=== PATIENT | female | born 1945 | race Caucasian/White ===

== ENCOUNTER 2018-07-29 10:22 | Day surgery (SDC) | payer MEDICARE, MEDICAID ==
[2018-07-20 11:46] VITALS: BMI 28.3
[2018-07-29] MEDS ORDERED: Lactated Ringer's 1,000 ML IV ONE ×2 (11:45→18:10)
[2018-07-29] MEDS ORDERED: Lidocaine 1% 5ml Abboject ONE (12:58)
[2018-07-29] MEDS ORDERED: ceFAZolin IV 2 gm in Dextrose 2 GM/50 ML BAG IVPB ONE (14:49)
[2018-07-29] MEDS ORDERED: Bupivacaine HCl 0.5% PF (30 ml) Inj ONE (14:49)
[2018-07-29] MEDS ORDERED: Lidocaine 1% w Epi 1:100,000 Inj ONE (14:50)
[2018-07-29] MEDS ORDERED: Methylene Blue 10 mg/mL(10ml) IV ONE (14:58)
[2018-07-29] MEDS ORDERED: HYDROmorphone 0.5 mg/0.5 ml ISec IVP PRN (15:39)
[2018-07-29] MEDS ORDERED: Lactated Ringer's 1,000 ML IV SCH (15:45)
--- NOTE | 2018-07-29 16:43 | MAM ---
Date of service: 07/29/2018 HISTORY: Known left breast cancer TECHNIQUE/FINDINGS: Timeout was called for wire needle localization procedure for lesion with clip in the left breast. The breast was placed in spot compression in left lateral medial projection with a grid in place and was identified. Overlying skin was marked for procedure. In a sterile field, overlying skin was cleaned. Threecc of lidocaine 1 percent was utilized for skin anesthesia and approximately 2 cc of lidocaine was utilized for slightly deep tissue anesthesia. A 10 cm wire was placed . A left lateral medial and left CC projection was obtained and demonstrated the needle localization wire to be in good position. The wire was properly secured . Prior to the procedure, the breast surgeon had requested that the needle be left in along with the guidewire. The guidewire was deployed /hooked at the end of the procedure to facilitate its stabilization. And the thicker part of the guidewire - proximal to the deployed hook in the guidewire is understood obscured by the remaining needle in place-as requested -prior to the procedure. Patient tolerated procedure well with no complications. Postoperative specimen radiograph demonstrates the presence of the hookwire in its entirety, along with the biopsied including in its entirety the biopsy clip as well. The lesion and the biopsy clipare well centered in the surgical specimen with generous appearing margins. This specimen result was immediately called up to the operating room and directly conveyed to the breast surgeon IMPRESSION: Successful needle localization with confirmation specimen radiograph. Pathology results pending
--- NOTE | 2018-07-29 16:52 | PCM.SURG1 ---
Surgeon's Initial Post Op Note - Surgeon's Notes Surgeon: Dr. Tariq Loss Prevention Operations Manager: Siobhan PGY2 Type of Anesthesia: General LMA, Local Anesthesia Administered By: Dr. Pito Ochoa Pre-Operative Diagnosis: Left breast mass, invasive ductal CA Operative Findings: Left breast mass, invasive ductal CA, sentinel lymph nodes Post-Operative Diagnosis: Left breast mass, invasive ductal CA with sentinel lymph nodes Operation Performed: Left lumpectomy with SLNBx Specimen/Specimens Removed: Breast mass, sentinel lymph node #1, left breast sentinel lymph nodes Estimated Blood Loss: EBL {In ML}: 10 Blood Products Given: N/A Drains Used: No Drains Post-Op Condition: Good Date of Surgery/Procedure: 07/29/18 Time of Surgery/Procedure: 16:52
--- NOTE | 2018-07-29 16:53 | CP.SDSHP ---
Same Day Surgery H & P - History Proposed Procedure: Left lumpectomy with SLNBx Pre-Op Diagnosis: Left breast mass, invasive ductal CA - Allergies Allergies: Allergies No Known Allergies Allergy (Verified 07/29/18 10:48) - Physical Exam Vital Signs: Vital Signs 07/29/18 07/29/18 07/29/18 11:05 11:30 12:30 Temperature 98.1 F 98.5 F Pulse Rate 62 62 80 Respiratory 18 18 Rate Blood Pressure 137/62 128/68 O2 Sat by Pulse 99 100 Oximetry Mental Status: Alert & Oriented x3 Neuro: WNL Heart: WNL Lungs: WNL GI: WNL - {Optional Preform as Required} Breast: Other (localizing needle in place) - Impression Impression: 72 F with Left breast mass and invasive ductal CA who presents for left lumpectomy with SLNBx Pt. Evaluated Today:Candidate for Anesthesia & Procedure: Yes - Date & Time Date: 07/29/18 Time: 15:00 Short Stay Discharge - Short Stay Discharge Admitting Diagnosis/Reason for Visit: C50.919 Disposition: HOME/ ROUTINE Referrals: Tam Acosta MD [Primary Care Provider] - Owen Tariq MD [Staff Provider] - Additional Instructions (Diet, Activity): May resume diet as normal Keep area clean and dry May shower Please follow up with Dr. Tariq within 1-2 weeks Call the office for any issues Progress Note/Discharge Note with Instructions: 72 F s/p left lumpectomy with SLNBx for left breast invasive ductal CA
[2018-07-29] MEDS ORDERED: Oxycodone/Acetaminophen 5/325 mg Tab PO PRN (16:56)
--- NOTE | 2018-07-29 17:20 | NM ---
Date of service: 07/29/2018 HISTORY: 72 year old female with left breast cancer. TECHNIQUE: Multiple injections totaling 1 mCi of 99m Tc filtered sulfur colloid (total volume of 8 ml) were administered in 4 separate intradermal to subcutaneous injection sites at the 1236 and 9 o'clock periareolar locations. Anterior and oblique projection images of the chest were subsequently obtained. Sternal notch an axillary markers are so labeled on the medial image FINDINGS: On the immediate image there is at least 2 foci of tracer activity projecting over the left upper outer breast just medial to left axillary marker.Patient's initial cancer proven biopsy site was in the left breast at 4 o'clock. On the delayed images there is coalescing increased trace intensity in the left breast upper outer quadrant just medial to left axillary marker. Additional tinier foci of tracer activity on the delayed images are suggested. These additional superior tinier sites project medially and laterally. Tracer activity in lymph nodes which project over the left upper inner and left upper outer quadrant towards the left axilla is compatible with this IMPRESSION: Successful sentinel node procedure with confirmation of multiple sites of increased tracer activity and migration cephalad to the original left breast 4 o'clock biopsy-proven cancer site as detailed above. Findings discussed with Dr. Tariq
[2018-07-29 17:55] VITALS: O2SAT 99
[2018-07-29 18:30] VITALS: RESP 18
[2018-07-29 19:06] VITALS: BP 121/78; PULSE 68; TEMP 97.5
== END 2018-07-29 19:15 | disposition home or self-care (01) ==
LOC: H.OPSURG 10:22
PROVIDERS: ATTEND Specialist
DX: C50.912 Malignant neoplasm of unspecified site of left female breast (principal); E78.5 Hyperlipidemia, unspecified; F41.1 Generalized anxiety disorder; R41.3 Other amnesia; Z90.710 Acquired absence of both cervix and uterus
CPT/HCPCS: 19281; 19282; 19301; 78195; 88307; A9541; J0690; J1170; J2001; J2250; J2405; J2704; J3010; J7120